=== PATIENT | female | born 1990 | race Caucasian/White ===

== ENCOUNTER 2016-11-05 10:20 | Emergency (ER) | payer OTHER ==
[~2016-11-05] VITALS: Ht 165.1 cm; Wt 78.0 kg
[~2016-11-05 10:20] MED LIST: ATIVAN0.5 M1 PO; BACTRIM DS TAB1 EACH PO; KEFLEX500 MG PO; NOHOMEMEDICATIONS; PERCOCET 5-3251 EACH PO
[2016-11-05 10:21] VITALS: BP 127/80
[2016-11-05] MEDS ORDERED: MEDROL DOSPAK21 TA1 PO (11:10)
[2016-11-05] MEDS ORDERED: VISTARIL 25 MG25 M1 PO (11:10)
== END 2016-11-05 11:24 | disposition home or self-care (01) ==
LOC: ER 10:20
DX: O26.899 Other specified pregnancy related conditions, unspecified trimester (principal); L25.9 Unspecified contact dermatitis, unspecified cause; F41.9 Anxiety disorder, unspecified; F17.210 Nicotine dependence, cigarettes, uncomplicated; Z88.5 Allergy status to narcotic agent; Z3A.00 Weeks of gestation of pregnancy not specified

== ENCOUNTER 2018-03-03 15:05 | Emergency (ER) | payer OTHER ==
[~2018-03-03] VITALS: Ht 170.2 cm; Wt 68.0 kg
[~2018-03-03 15:05] MED LIST changes: +CLEOCIN HCL150 MG PO; +MEDROL DOSPAK21 TA1 PO; +VISTARIL 25 MG25 M1 PO
[2018-03-03 15:30] LABS: URINE BILIRUBIN NEGATIVE (Negative); URINE CLARITY CLOUDY; URINE COLOR BROWNISH; URINE GLUCOSE-RANDOM* NEGATIVE (Negative); URINE KETONES NEGATIVE (Negative); URINE PROTEIN (DIPSTICK) TRACE (Negative); URINE SPECIFIC GRAVITY >= 1.030 (1.005-1.035)
[2018-03-03 15:31] LABS: URINE BLOOD 3+ (Negative); URINE LEUKOCYTES-REFLEX NEGATIVE (Negative); URINE NITRITE-REFLEX NEGATIVE (Negative); URINE UROBILINOGEN 0.2 E.U./dl (0.2-1.0)
[2018-03-03 15:33] LABS: SQUAMOUS 0-3 Few /LPF (0-3); URINE RBC >20 Many /HPF (0-2); URINE WBC-REFLEX 0-5 Rare /HPF (0-5)
[2018-03-03 15:34] LABS: CASTS None Seen /LPF (None Seen)
[2018-03-03 15:35] LABS: CRYSTALS None Seen /LPF (None Seen)
[2018-03-03 16:26] VITALS: BP 132/97
== END 2018-03-03 16:27 | disposition home or self-care (01) ==
LOC: ER 15:05
PROVIDERS: Nurse Practitioner Family
DX: N76.0 Acute vaginitis (principal); F41.9 Anxiety disorder, unspecified; F17.210 Nicotine dependence, cigarettes, uncomplicated; Z88.5 Allergy status to narcotic agent

== ENCOUNTER 2019-04-19 01:24 | Emergency (ER) | payer OTHER ==
[~2019-04-19] VITALS: Ht 170.2 cm; Wt 70.3 kg
[2019-04-19 02:41] LABS: URINE BILIRUBIN NEGATIVE (Negative); URINE BLOOD 2+ (Negative); URINE CLARITY TURBID; URINE COLOR YELLOW; URINE GLUCOSE-RANDOM* NEGATIVE (Negative); URINE KETONES NEGATIVE (Negative); URINE LEUKOCYTES-REFLEX 2+ (Negative); URINE NITRITE-REFLEX NEGATIVE (Negative); URINE PROTEIN (DIPSTICK) 1+ (Negative); URINE SPECIFIC GRAVITY >= 1.030 (1.005-1.035); URINE UROBILINOGEN 0.2 E.U./dl (0.2-1.0)
[2019-04-19 02:47] LABS: CASTS None Seen /LPF (None Seen); CRYSTALS None Seen /LPF (None Seen); MUCUS 0-3 Light strn/LPF (None Seen); SQUAMOUS None Seen /LPF (0-3); WBC CLUMPS Few (None Seen)
[2019-04-19 02:54] LABS: AMP/METHAMP POSITIVE (Negative); BARBITURATES Negative (Negative); BENZODIAZEPINES Negative (Negative); COCAINE Negative (Negative); METHADONE Negative (Negative); OPIATES Negative (Negative); PCP Negative (Negative)
[2019-04-19] MEDS ORDERED: NOHOMEMEDICATIONS (03:24)
[2019-04-19 03:27] LABS: HEMATOCRIT 42.3 % (37.0-47.0); HEMOGLOBIN 14.1 gm/dL (12.0-15.0); MCH 31.2 pg (26.0-34.0); MCHC 33.2 g/dL (28.0-37.0); MCV 93.8 fL (80.0-100.0); RBC 4.51 mil/uL (4.20-5.00); RDW 12.6 % (10.5-14.5); WBC 9.3 thou/uL (4.0-11.0)
[2019-04-19] MEDS ORDERED: CLEOCIN HCL300 MG PO (03:59)
[2019-04-19 04:03] VITALS: BP 123/69
[2019-04-20 02:07] LABS: HIV ANTIBODY Non Reactive (Non Reactive)
[2019-04-20 18:07] LABS: HSV 1 IgG 9.71 index (0.00-0.90); HSV 2 IgG <0.91 index (0.00-0.90)
[2019-04-22 21:06] LABS: SYPHILIS AB Reactive (Non Reactive)
== END 2019-04-19 04:14 | disposition home or self-care (01) ==
LOC: ER 01:24
PROVIDERS: Emergency Medicine Emergency Medical Services
DX: O23.91 Unspecified genitourinary tract infection in pregnancy, first trimester (principal); N89.8 Other specified noninflammatory disorders of vagina; O99.331 Smoking (tobacco) complicating pregnancy, first trimester; F17.210 Nicotine dependence, cigarettes, uncomplicated; Z3A.01 Less than 8 weeks gestation of pregnancy; Z88.5 Allergy status to narcotic agent

== ENCOUNTER 2019-06-18 03:26 | Emergency (ER) | payer OTHER ==
[~2019-06-18] VITALS: Ht 160 cm; Wt 68.0 kg
[~2019-06-18 03:26] MED LIST changes: +CLEOCIN HCL300 MG PO
[2019-06-18] MEDS ORDERED: AUGMENTIN 875-1 EACH PO (03:56)
[2019-06-18 04:03] VITALS: BP 160/79
== END 2019-06-18 04:03 | disposition home or self-care (01) ==
LOC: ER 03:26
DX: O99.612 Diseases of the digestive system complicating pregnancy, second trimester (principal); K04.7 Periapical abscess without sinus; O99.342 Other mental disorders complicating pregnancy, second trimester; F41.9 Anxiety disorder, unspecified; O99.332 Smoking (tobacco) complicating pregnancy, second trimester; F17.210 Nicotine dependence, cigarettes, uncomplicated; Z3A.20 20 weeks gestation of pregnancy